=== PATIENT | female | born 1990 | race Two or more races ===

== ENCOUNTER 2017-07-05 10:35 | Day surgery (SDC) | payer MEDICAID ==
[~2017-07-05 10:35] MED LIST: ATROPINE 1 MG/10 ML SYRINGE IV; DIPHENHYDRAMINE 50 MG INJ IV; EPHEDrine SULFATE 50 MG/5 ML SYG IV; FENTAnyl 50 MCG/ML VIAL IV; HYDROmorphONE (0.2 MG/ML) 10ML SYG IV; LABETALOL HCL 20MG INJ IV; MIDAZOLAM 1 MG/ML 2 ML INJ IV; ONDANSETRON 4 MG INJ IV; OXYCODONE/ACETAMINOPHEN (5/325) TAB PO; hydrALAzine 20 MG INJ IV; morphine (1 MG/ML) 10ML SYRINGE IV
[2017-07-05] MEDS ORDERED: GLYCOPYRROLATE 0.4 MG INJ (10:59)
[2017-07-05] MEDS ORDERED: PROPOFOL 20 ML (10:59)
[2017-07-05] MEDS ORDERED: NEOSTIGMINE 3 MG/3 ML SYRINGE (10:59)
[2017-07-05] MEDS ORDERED: LIDOCAINE 2% (SDV) 5 ML INJ (10:59)
[2017-07-05] MEDS ORDERED: ROCURONIUM 50 MG INJ (10:59)
[2017-07-05] MEDS ORDERED: MIDAZOLAM 1 MG/ML 2 ML INJ (11:00)
[2017-07-05] MEDS ORDERED: FENTAnyl 50 MCG/ML VIAL (11:00)
[2017-07-05] MEDS ORDERED: ONDANSETRON 4 MG INJ (11:01)
[2017-07-05] MEDS ORDERED: DEXAMETHASONE 4 MG/ML 1 ML INJ (11:01)
[2017-07-05 12:00] LABS: ADD MAN DIFF? NO
[2017-07-05 12:08] LABS: BASOPHIL # 0.1 10^3/ul (0.0-0.1); BASOPHILS % 0.5 % (0.0-2.0); EOSINOPHILS # 0.7 10^3/ul (0.0-0.5); EOSINOPHILS % 6.6 % (0.0-7.0); HEMATOCRIT 36.2 % (37.0-47.0); HEMOGLOBIN 12.6 g/dl (12.0-16.0); LYMPHOCYTES # 2.9 10^3/ul (0.8-2.9); LYMPHOCYTES % 29.1 % (15.0-51.0); MEAN CORPUSCULAR HEMOGLOBIN 30.9 pg (29.0-33.0); MEAN CORPUSCULAR HGB CONC 34.8 g/dl (32.0-37.0); MEAN CORPUSCULAR VOLUME 88.7 fl (82.0-101.0); MEAN PLATELET VOLUME 11.4 fl (7.4-10.4); MONOCYTE # 0.5 10^3/ul (0.3-0.9); NEUTROPHIL # 5.7 10^3/ul (1.6-7.5); NEUTROPHILS % 58.2 % (39.0-77.0); PLATELET COUNT 261 10^3/UL (140-415); RED BLOOD COUNT 4.08 10^6/ul (4.20-5.40); RED CELL DISTRIBUTION WIDTH 11.7 % (11.5-14.5)
[2017-07-05 12:08] LABS: WHITE BLOOD COUNT 9.8 10^3/ul (4.8-10.8)
[2017-07-05] MEDS ORDERED: CEFAZOLIN 1 GM INJ (12:11)
[2017-07-05] MEDS ORDERED: KETOROLAC 30 MG INJ (12:22)
[2017-07-05] MEDS ORDERED: MEPERIDINE 25 MG INJ (12:53)
[2017-07-05] MEDS: MEPERIDINE 25 MG INJ IV (13:14)
== END 2017-07-05 16:00 | disposition home or self-care (01) ==
LOC: SDS 10:35
DX: Z30.2 Encounter for sterilization (principal)
CPT/HCPCS: 58565; 84702; 85025